=== PATIENT | female | born 1975 | race Caucasian/White ===

== ENCOUNTER 2017-04-08 14:03 | Emergency (ER) | payer MEDICAID ==
[2017-04-08] MEDS ORDERED: MUPIROCIN 2% OINT 1 GM TOP STA (14:28)
--- NOTE | 2017-04-08 14:32 | ED Physician Documentation ---
History of Present Illness - Stated complaint Stated Complaint: SPIDER BITE - Chief complaint Chief Complaint: Wound - Additonal information Additional information: hx from pt 41 f LLE anterior draining sore denies preg Review of Systems Constitutional: denies: Fever : denies: Now EGA Skin: reports: Lesions PD PAST MEDICAL HISTORY - Past Medical History Past Medical History: No - Past Surgical History Past Surgical History: Yes - Present Medications Home Medications: Ambulatory Orders Medication Instructions Recorded Confirmed Cephalexin [Keflex] 500 mg PO Q6H #28 capsule 04/08/17 Sulfamethox/Trimeth 800/160 1 each PO BID #14 tablet 04/08/17 [Bactrim Ds 800/160] - Allergies Allergies/Adverse Reactions: Allergies Allergy/AdvReac Type Severity Reaction Status Date / Time No Known Drug Allergies Allergy Verified 04/08/17 14:09 - Social History Does the pt smoke?: Yes Smoking Status: Current every day smoker Does the pt drink ETOH?: Yes Does the pt have substance abuse?: No - Immunizations Immunizations are current?: Yes PD ED PE NORMAL - Vitals Vital signs reviewed: Yes - Cardiac Cardiac: RRR - Respiratory Respiratory: No respiratory distress, Clear bilaterally - Derm Derm: Other (ant L linares with a open draining abscess with surrounding cellultis , cultured, does not need I&D) Results - Vitals Vitals: Vital Signs - 24 hr 04/08/17 14:08 Temperature 36.7 C Heart Rate 91 Respiratory 18 Rate Blood Pressure 131/86 H O2 Saturation 96 Oxygen O2 Source Room air Departure - Departure Disposition: 01 Home, Self Care Clinical Impression: Abscess Condition: Good Instructions: ED Staph Infec Abx Tx Only Prescriptions: Sulfamethox/Trimeth 800/160 [Bactrim Ds 800/160] 1 each PO BID #14 tablet Cephalexin [Keflex] 500 mg PO Q6H #28 capsule Comments: Take the antinitocs as prescribed May leave dressing on until tomorrow. The wash daily and cover with a bandaid. Warm compresses will encourage any further drainage See your PMD if not getting better in 48 hr Return to the ER if worse please follow up with your PMD about your blood pressure - it was high today
[2017-04-08] MEDS ORDERED: BACITRACIN OINT TOP ONE (14:53)
[2017-04-08] MEDS ORDERED: MUPIROCIN 2% OINT 1 GM ONE (14:56)
[2017-04-08 15:22] VITALS: BP 112/80
== END 2017-04-08 15:21 | disposition home or self-care (01) ==
LOC: ED 14:03
DX: L02.416 Cutaneous abscess of left lower limb (principal); T63.301A Toxic effect of unspecified spider venom, accidental (unintentional), initial encounter
CPT/HCPCS: 87070; 87077; 87181; 87205; 99283; A9270

== ENCOUNTER 2020-03-02 08:36 | Emergency (ER) | payer MEDICAID ==
[2020-03-02 08:49] VITALS: BP 125/83
--- NOTE | 2020-03-02 08:51 | ED Physician Documentation ---
PD HPI FEMALE - Stated complaint Stated Complaint: FEMALE - Chief complaint Chief Complaint: General - History obtained from History obtained from: Patient - History of Present Illness Timing - onset: How many days ago (she says she had a small red patch on medial upper thigh/crural area a few days ago that has cleared. But her sexual partner (since last fall, intermittent interactions though) told her that he was Dx with syphilis and is currently finishing abx for it. Pt concerned and here for evaluation. Does complain of some joint aches diffusely. No diffuse rash. Denies vaginal discharge.) Timing - details: Gradual onset, Now resolved (crural rash is gone but still having myalgias/joint aches.) Associated symptoms: No: Fever, Vaginal discharge, Dysuria Contributing factors: Exposed to STD Similar symptoms before: Has not had sx before Review of Systems Constitutional: reports: Myalgias. denies: Fever, Chills, Fatigue Nose: denies: Rhinorrhea / runny nose, Congestion Throat: denies: Sore throat Respiratory: denies: Cough GI: denies: Abdominal Pain, Nausea, Vomiting : denies: Dysuria, Frequency, Discharge PD PAST MEDICAL HISTORY - Past Medical History Past Medical History: No - Past Surgical History Past Surgical History: Yes - Present Medications Home Medications: Ambulatory Orders Medication Instructions Recorded Confirmed Doxycycline Monohydrate 100 mg PO BID #14 tablet 03/02/20 Naproxen 500 mg PO BID #20 tablet 03/02/20 - Allergies Allergies/Adverse Reactions: Allergies Allergy/AdvReac Type Severity Reaction Status Date / Time No Known Drug Allergies Allergy Verified 03/02/20 08:49 - Social History Does the pt smoke?: Yes Smoking Status: Current every day smoker Does the pt drink ETOH?: Yes Does the pt have substance abuse?: No - Immunizations Immunizations are current?: Yes PD ED PE NORMAL - Vitals Vital signs reviewed: Yes - General General: Alert and oriented X 3, No acute distress, Well developed/nourished - HEENT HEENT: Pharynx benign - Neck Neck: Supple, no meningeal sign, No adenopathy - Abdomen Abdomen: Soft, Non tender - Female Female : Deferred (she says rash has gone, so deferred exam. Will get self- obtained STD tests.) - Derm Derm: Normal color, Warm and dry Results - Vitals Vitals: Vital Signs - 24 hr 03/02/20 08:44 Temperature 36.6 C Heart Rate 84 Respiratory 16 Rate Blood Pressure 125/83 H O2 Saturation 98 Oxygen O2 Source Room air - Labs Labs: Laboratory Tests 03/02/20 03/02/20 09:09 09:09 C. glabrata (PCR) NEGATIVE C. krusei (PCR) NEGATIVE Marcie species DNA NEGATIVE Chlam trachomat DNA PCR NEGATIVE N.gonorrhoeae DNA (PCR) NEGATIVE T. vaginalis (PCR) NEGATIVE NEGATIVE Bact Vaginosis (PCR) POSITIVE A Departure - Departure Disposition: 01 Home, Self Care Clinical Impression: Exposure to syphilis Condition: Stable Record reviewed to determine appropriate education?: Yes Prescriptions: Doxycycline Monohydrate 100 mg PO BID #14 tablet Naproxen 500 mg PO BID #20 tablet Comments: The test results for the vaginal and sexually transmitted infections will be available in a day or so. Since you had the exposure to syphilis, we can treat it empirically anyway in case there is some latent germs that have not yet caused infection. We will call you if we need to add or change antibiotic based on the results. Doxycycline antibiotic as directed and naproxen anti-inflammatory as directed. Discharge Date/Time: 03/02/20 09:40
[2020-03-02] MEDS ORDERED: NAPROXEN 250 MG TABLET PO STA (09:06)
[2020-03-02] MEDS ORDERED: DOXYCYCLINE 100 MG TABLET PO STA (09:06)
[2020-03-02 11:19] LABS: CANDIDA GROUP DNA NEGATIVE (NEGATIVE); CANDIDA KRUSEI DNA NEGATIVE (NEGATIVE); TRICHOMONAS VAGINALIS DNA NEGATIVE (NEGATIVE)
[2020-03-02 21:17] LABS: TRICHOMONAS VAGINALIS DNA NEGATIVE (NEGATIVE)
[2020-03-03 10:29] LABS: HIV AG/AB 4TH GEN NON-REACTIVE (NON-REACTIVE)
== END 2020-03-02 09:40 | disposition home or self-care (01) ==
LOC: ED 08:36 → EEVIPCON 08:36 → ED 09:40
DX: Z20.2 Contact with and (suspected) exposure to infections with a predominantly sexual mode of transmission (principal); M79.10 Myalgia, unspecified site; M25.50 Pain in unspecified joint; F17.200 Nicotine dependence, unspecified, uncomplicated
CPT/HCPCS: 36415; 86780; 87389; 87481; 87491; 87591; 87661; 87801; 99283; 99284; A9270

== ENCOUNTER 2021-02-27 14:32 | Emergency (ER) | payer OTHER, MEDICAID ==
--- NOTE | 2021-02-27 14:54 | ED Physician Documentation ---
PD HPI LOWER EXT INJURY - Stated complaint Stated Complaint: RIGHT ANKLE INJURY - Chief complaint Chief Complaint: Ext Problem - History obtained from History obtained from: Patient - Additional information Additional information: A [place] impacted the back of her right foot today while closing the gate. She is able to walk and bear weight but it is painful. No other injuries. No possibility of . Declines pain medication on initial evaluation. Review of Systems Constitutional: reports: Reviewed and negative Eyes: reports: Reviewed and negative Ears: reports: Reviewed and negative Nose: reports: Reviewed and negative Throat: reports: Reviewed and negative PD PAST MEDICAL HISTORY - Past Surgical History Past Surgical History: Yes - Present Medications Home Medications: Ambulatory Orders Medication Instructions Recorded Confirmed Doxycycline Monohydrate 100 mg PO BID #14 tablet 03/02/20 Naproxen 500 mg PO BID #20 tablet 03/02/20 - Allergies Allergies/Adverse Reactions: Allergies Allergy/AdvReac Type Severity Reaction Status Date / Time No Known Drug Allergies Allergy Verified 02/27/21 14:41 - Social History Does the pt smoke?: Yes Smoking Status: Current every day smoker Does the pt drink ETOH?: Yes Does the pt have substance abuse?: No - Immunizations Immunizations are current?: Yes PD ED PE NORMAL - Vitals Vital signs reviewed: Yes - General General: Alert and oriented X 3, No acute distress - Extremities Extremities: Other (The Achilles tendon is nontender, Rose's test is intact as is strength in extension of the right foot. She is focally tender at the insertion of the Achilles tendon on the posterior calcaneus. No other foot or ankle tenderness.) - Neuro Neuro: Alert and oriented X 3, Normal speech Results - Vitals Vitals: Vital Signs - 24 hr 02/27/21 14:36 Temperature 37.2 C Heart Rate 83 Respiratory 15 Rate Blood Pressure 118/67 O2 Saturation 100 Oxygen O2 Source Room air - Rads (name of study) R calcaneus Radiology: EMP read contemporaneously Departure - Departure Disposition: 01 Home, Self Care Clinical Impression: Contusion of foot Qualifiers: Encounter type: initial encounter Laterality: right Qualified Code(s): S90.31XA - Contusion of right foot, initial encounter Condition: Good Record reviewed to determine appropriate education?: Yes Instructions: ED Contusion Foot Comments: As discussed, your x-ray today shows chronic findings at the insertion of the Achilles into the calcaneus. This is not an acute finding, is from wear and tear more long-term. Wear the boot as needed for comfort. Return for new or worsening symptoms. Follow-up with your doctor in a week if not improved.
--- OUTSIDE RECORDS SUMMARY | 2021-02-27 15:03 | EXTERNAL MEDICAL SUMMARY RPT | Continuity of Care Document ---
:1975 Demographics Phone Unavailable Preferred Language Unknown Marital Status Unknown [employer] Affiliation Unknown Race Unknown Ethnic Group Unknown Author Organization [facility] Address [address] [place] [address] Phone Social History date description facility [phone]
--- NOTE | 2021-02-27 15:32 | XRAY Report ---
PROCEDURE: Calcaneus RT INDICATIONS: foot inj TECHNIQUE: Two views of the calcaneus were acquired. COMPARISON: None FINDINGS: Bones: No fractures or dislocations. No suspicious bony lesions. Soft tissues: No suspicious calcifications. Enthesophyte formation at the Achilles insertion. IMPRESSION: No acute osseous abnormality. Achilles insertional enthesophyte. Reviewed by: Kelby Cárdenas DO on 02/27/2021 2:30 PM ANDRES Approved by: Kelby Cárdenas DO on 02/27/2021 2:30 PM ANDRES Station ID: [id number]
[2021-02-27 15:51] VITALS: BP 119/70
== END 2021-02-27 15:51 | disposition home or self-care (01) ==
LOC: ED 14:32
DX: S90.31XA Contusion of right foot, initial encounter (principal); W20.8XXA Other cause of strike by thrown, projected or falling object, initial encounter; Y99.0 Civilian activity done for income or pay; F17.200 Nicotine dependence, unspecified, uncomplicated
CPT/HCPCS: 1040M; 73650; 99282; 99283

== ENCOUNTER 2021-03-04 13:47 | Outpatient (CLI) | payer MEDICAID | END 2021-03-04 13:48 | disposition home or self-care (01) | LOC: COV 13:47 | PROVIDERS: ATTEND Family Medicine | DX: Z20.822 Contact with and (suspected) exposure to COVID-19 (principal) ==

== ENCOUNTER 2021-12-03 12:46 | Outpatient (CLI) | payer MEDICAID | END 2021-12-03 12:47 | disposition short-term general hospital (02) | LOC: EMS 12:46 | DX: R60.0 Localized edema (principal); H57.11 Ocular pain, right eye; R11.0 Nausea; R42 Dizziness and giddiness; R19.7 Diarrhea, unspecified | CPT/HCPCS: A0425; A0427; A0999 ==

== ENCOUNTER 2023-01-15 08:00 | Outpatient (CLI) | payer MEDICAID | END 2023-01-15 23:59 | disposition home or self-care (01) | LOC: LAB.S 08:00 | PROVIDERS: ATTEND Emergency Medicine | DX: L03.317 Cellulitis of buttock (principal); L02.31 Cutaneous abscess of buttock | CPT/HCPCS: 87070; 87181; 87205 ==

== ENCOUNTER 2024-04-08 08:00 | Outpatient (CLI) | payer MEDICAID | END 2024-04-08 23:59 | disposition home or self-care (01) | LOC: LAB.R 08:00 | PROVIDERS: ATTEND Nurse Practitioner | DX: L03.317 Cellulitis of buttock (principal); L02.31 Cutaneous abscess of buttock | CPT/HCPCS: 87070; 87181; 87205 ==

== ENCOUNTER 2024-04-09 12:23 | Outpatient (CLI) | payer MEDICAID ==
[2024-04-09 15:07] LABS: BASOPHILS # (AUTO) 0.1 10^3/uL (0.0-0.1); BASOPHILS % (AUTO) 0.6 %; EOSINOPHILS # (AUTO) 0.4 10^3/uL (0.0-0.7); EOSINOPHILS % (AUTO) 3.5 %; LYMPHOCYTES % (AUTO) 26.1 %; MEAN CORPUSCULAR HEMOGLOBIN 29.4 pg (27.0-31.0); MEAN CORPUSCULAR HGB CONC 31.7 g/dL (32.0-36.0); MEAN CORPUSCULAR VOLUME 92.8 fL (81.0-99.0); MEAN PLATELET VOLUME 10.1 fL (7.9-10.8); MONOCYTES # (AUTO) 0.9 10^3/uL (0.0-1.0); MONOCYTES % (AUTO) 7.5 %; NEUTROPHILS # (AUTO) 7.2 10^3/uL (1.5-6.6); PLT - PLATELET COUNT 360 10^3/uL (130-450); RED BLOOD COUNT 4.42 10^6/uL (4.20-5.40); RED CELL DISTRIBUTION WIDTH 12.8 % (12.0-15.0); WHITE BLOOD COUNT 11.6 x10^3/uL (4.8-10.8)
[2024-04-09 15:31] LABS: ALBUMIN 4.2 g/dL (3.2-5.5); ALBUMIN/GLOBULIN RATIO 1.2 (1.0-2.2); BILIRUBIN,TOTAL 0.2 mg/dL (0.2-1.0); CALCIUM 9.4 mg/dL (8.5-10.3); CREATININE 0.6 mg/dL (0.6-1.3); CRP - C-REACTIVE PROTEIN 12.3 mg/dL (<0.5); POTASSIUM 4.2 mmol/L (3.5-4.5); TOTAL PROTEIN 7.6 g/dL (6.4-8.9)
== END 2024-04-09 12:24 | disposition home or self-care (01) ==
LOC: LAB.S 12:23
PROVIDERS: ATTEND Nurse Practitioner
DX: L02.31 Cutaneous abscess of buttock (principal)
CPT/HCPCS: 36415; 80053; 85025; 85651; 86140

== ENCOUNTER 2024-04-14 12:22 | Outpatient (CLI) | payer MEDICAID | END 2024-04-14 12:23 | disposition home or self-care (01) | LOC: LAB.R 12:22 | PROVIDERS: ATTEND Nurse Practitioner | DX: A49.02 Methicillin resistant Staphylococcus aureus infection, unspecified site (principal); L01.00 Impetigo, unspecified | CPT/HCPCS: 87070; 87205 ==